=== PATIENT | female | born 1985 | race Caucasian/White ===

== ENCOUNTER 2016-06-19 18:42 | Emergency (ER) | payer MEDICAID ==
[~2016-06-19] VITALS: Ht 162.6 cm; Wt 60.5 kg
[~2016-06-19 18:42] MED LIST: BACTDS PO; CIPR500T4 PO; DIVA500T7 PO; ESCI20TA PO; HYDR-3498 PO; HYDR-762 PO; LORA-444 PO; ONDA4TAB35 PO; QUET200T PO; ZOF8 PO
[2016-06-19 19:12] VITALS: Ht 162.6 cm; Wt 60.5 kg
[2016-06-19] MEDS ORDERED: ONDANSETRON 4 MG INJ IV STA (21:19)
[2016-06-19] MEDS ORDERED: SOD CHLORIDE 0.9% 1,000 ML IV STA (21:19)
[2016-06-19] MEDS ORDERED: ACETAMINOPHEN 1000MG/100ML IV 100 ML IVPB ONE (21:30)
--- NOTE | 2016-06-19 22:46 | ERD ---
ER Documentation Chief Complaint Date/Time DATE: 06/19/16 TIME: 22:41 Chief Complaint RT FLANK PAIN X3 DAYS +N/V/D HPI This is a 31-year-old female presents to the ER with right flank pain for the last 3 days. Patient states she has had nausea vomiting and diarrhea. She admits to fevers and chills. Patient has had numerous kidney infections and has had kidney stones in the past. She is also had 2 stents placed. Patient has been to the ER multiple times and does have a history of narcotic dependence and abuse. Patient does admit to some urinary frequency or dysuria. She denies any hematuria. Her last normal menstrual period was on May 31, 2016. ROS 12 point review of systems was done, all negative except per HPI. Medications Home Meds Active Scripts Sulfamethoxazole-Trimethoprim* (Bactrim* DS) 800-160 Mg Tab, 1 TAB PO BID for 5 Days, TAB Prov:JOSEPH DUNCAN PA-C 12/20/14 Ondansetron Hcl* (Zofran* ODT) 8 mg -ODT Tab.disper, 8 MG PO Q6 Y for NAUSEA AND /OR VOMITING, #10 TAB Prov:ADY STOKES PA-C 12/01/14 Hydrocodone Bit-Acetaminophen* ([place]*) 5-325 Mg Tab, 1 TAB PO Q6 Y for PAIN, # 10 TAB Prov:ADY STOKES PA-C 12/01/14 Ciprofloxacin Hcl* (Ciprofloxacin Hcl*) 500 Mg Tablet, 500 MG PO BID for 10 Days , TAB Prov:ADY STOKES PA-C 12/01/14 Ondansetron Hcl* (Zofran* ODT) 4 mg -ODT Tab.disper, 4 MG PO Q6 Y for NAUSEA AND /OR VOMITING, #5 TAB Prov:JOHN CORTEZ M. 09/05/14 Ciprofloxacin Hcl* (Ciprofloxacin Hcl*) 500 Mg Tablet, 500 MG PO BID for 7 Days , TAB Prov:NATACHA CORTEZT M. 09/05/14 Hydrocodone Bit-Acetaminophen* ([place]*) 5-325 Mg Tab, 1 TAB PO Q6 Y for PAIN, # 7 TAB Prov:JOHN CORTEZ M. 09/05/14 Ciprofloxacin Hcl* (Ciprofloxacin Hcl*) 500 Mg Tab, 500 MG PO BID@06,18 for 10 Days Prov:DONNIE LINDA [employer]IDENT [employer] [place] 07/14/14 Reported Medications Hydrocodone Bit-Acetaminophen* ([place]*) 10-325 Mg Tablet, 1 TAB PO Q4H Y for PAIN, TAB 07/08/14 Lorazepam* (Ativan*) 2 Mg Tablet, 1 MG PO DAILY Y for AGITATION/ANXIETY, TAB 06/17/14 Quetiapine Fumarate* (Seroquel*) 200 Mg Tablet, 200 MG PO HS, TAB 06/17/14 Escitalopram Oxalate* (Lexapro*) 20 Mg Tablet, 40 MG PO DAILY, TAB 06/17/14 Divalproex Sodium* (Depakote*) 500 Mg Tablet.dr, 1000 MG PO DAILY, TAB 06/17/14 Allergies Allergies: Coded Allergies: ketorolac (Verified Allergy, Unknown, hives, 06/19/16) morphine (Verified Allergy, Unknown, 06/19/16) tramadol (Unverified Allergy, Unknown, 06/19/16) vancomycin (Verified Allergy, Unknown, hives, 06/19/16) PMhx/Soc History of Surgery: Yes (right breast lump removed, nephrosotomy tube) Anesthesia Reaction: No Hx Neurological Disorder: Yes (hz seizure- 4 years ago) Hx Respiratory Disorders: No Hx Cardiac Disorders: No Hx Psychiatric Problems: Yes (anxiety, depression) Hx Miscellaneous Medical Probl: Yes (R kidney stones) Hx Tobacco Use: Yes Smoking Status: Current every day smoker Physical Exam Vitals Vital Signs Date Time Temp Pulse Resp B/P Pulse Ox O2 Delivery O2 Flow Rate FiO2 06/19/16 19:12 98.0 98 20 133/73 96 Physical Exam GENERAL: The patient is well developed and appropriate for usual state of health , in no apparent distress. HEENT: Atraumatic. = CHEST: Clear to auscultation bilaterally. There are no rales, wheezes or rhonchi. HEART: Regular rate and rhythm. No murmurs, clicks, rubs or gallops. ABDOMEN: Soft, nontender and nondistended. Good bowel sounds. No rebound or guarding. No gross peritonitis. No gross organomegaly or masses. No Gonzalez sign or McBurney point tenderness. +suprapubic tenderness BACK: No midline or flank tenderness. No CVA tenderness NEURO: Alert and oriented. SKIN: The skin is warm and dry. Results 24 hrs Current Medications Medications (Trade) Dose Ordered Sig/Andreia Route PRN Reason Start Time Stop Time Status Last Admin Dose Admin Sodium Chloride (NS) 1,000 ml @ 1,000 mls/hr Q1H STAT IV 06/19/16 21:19 06/19/16 22:18 DC 06/19/16 22:40 Ondansetron HCl 4 mg 4 mg ONCE STAT IV 06/19/16 21:19 06/19/16 21:22 DC 06/19/16 22:41 Acetaminophen (Ofirmev 1000mg/ 100ml Iv) 100 ml @ 400 mls/hr ONCE ONCE IVPB 06/19/16 21:30 06/19/16 21:44 DC Procedures/MDM ER course: Patient was stable throughout ER course, per [facility] report patient should not be given IV narcotics secondary to her history of narcotic abuse and dependence. I ordered IV tylenol for the patient, however she stated she has a bad liver and cannot take Tylenol. She states she is allergic to morphine, toradol, and tramadol. Differential Diagnosis: UTI, pyelonephritis, nephrolithiasis, septic stone, obstructive stone. Patient decided to leave AGAINST MEDICAL ADVICE. Patient was alert and oriented and capable of making this decision on her own. Patient signed AGAINST MEDICAL ADVICE form. Risks versus benefits and alternative options were discussed with patient, however patient was not receiving pain medication and became angry and frustrated. At this time I am unable to rule out UTI, pyelonephritis, any other infectious etiology as patient has decided to leave. Patient was advised to return to ER as soon as possible if symptoms worsen. Departure Diagnosis: Primary Impression: Flank pain Additional Impression: Drug-seeking behavior Condition: Stable EUGENIO HALL Jun 19, 2016 22:46
[2016-06-19 23:02] LABS: ADD SCAN DIFF NO
[2016-06-19 23:04] LABS: BASOPHILS % 0.2 % (0.0-2.0); EOSINOPHILS # 0.3 10^3/ul (0.0-0.5); EOSINOPHILS % 3.4 % (0.0-7.0); HEMATOCRIT 39.7 % (37.0-47.0); HEMOGLOBIN 12.7 g/dl (12.0-16.0); LYMPHOCYTES # 3.4 10^3/ul (0.8-2.9); LYMPHOCYTES % 34.3 % (15.0-51.0); MEAN CORPUSCULAR HEMOGLOBIN 29.6 pg (29.0-33.0); MEAN CORPUSCULAR VOLUME 92.5 fl (82.0-101.0); MEAN PLATELET VOLUME 9.5 fl (7.4-10.4); MONOCYTE # 0.8 10^3/ul (0.3-0.9); MONOCYTES % 8.1 % (0.0-11.0); NEUTROPHIL # 5.4 10^3/ul (1.6-7.5); NEUTROPHILS % 53.6 % (39.0-77.0); PLATELET COUNT 373 10^3/UL (140-415); RED BLOOD COUNT 4.29 10^6/ul (4.20-5.40); RED CELL DISTRIBUTION WIDTH 14.4 % (11.5-14.5)
[2016-06-19 23:14] LABS: ADD UMIC YES; URINE BILIRUBIN (Dip) NEGATIVE (NEGATIVE); URINE BLOOD (Dip) 3+ (NEGATIVE); URINE GLUCOSE (Dip) NEGATIVE (NEGATIVE); URINE KETONES (Dip) NEGATIVE (NEGATIVE); URINE LEUKOCYTE ESTERASE (Dip) 1+ (NEGATIVE); URINE NITRITE (Dip) NEGATIVE (NEGATIVE); URINE TOTAL PROTEIN (Dip) TRACE (NEGATIVE); URINE UROBILINOGEN (Dip) 0.2 E.U./dL (0.1-1.0)
[2016-06-19 23:15] LABS: URINE COLOR YELLOW (YELLOW)
[2016-06-19 23:18] LABS: ALBUMIN 4.1 g/dl (3.3-4.9); ALBUMIN/GLOBULIN RATIO 1.07; BILIRUBIN,INDIRECT 0.3 mg/dl (0-1.1); BILIRUBIN,TOTAL 0.3 mg/dl (0.2-1.3); CALCIUM 9.3 mg/dl (8.4-10.2); CREATININE 0.77 mg/dl (0.44-1.00); POTASSIUM 3.9 mmol/L (3.5-5.1); TOTAL PROTEIN 7.9 g/dl (6.1-8.1)
[2016-06-19 23:26] LABS: BACTERIA,URINE FEW; SQUAMOUS EPITHELIAL CELL,UR MODERATE; TRICHOMONAS,URINE RARE; URINE RBCS 0-2 /HPF (0)
== END 2016-06-19 23:07 | disposition left against medical advice (07) ==
LOC: FTE 18:42
DX: R10.9 Unspecified abdominal pain (principal); F17.210 Nicotine dependence, cigarettes, uncomplicated; R11.2 Nausea with vomiting, unspecified; Z72.89 Other problems related to lifestyle
CPT/HCPCS: 80053; 81001; 83690; 85025; J0131; J2405; J7030; 36415; 81003; 96374

== ENCOUNTER 2017-10-24 19:47 | Inpatient (IN) | END 2017-10-26 16:15 | disposition home or self-care (01) | DRG 694 ==